=== PATIENT | female | born 1955 | race Caucasian/White ===

== ENCOUNTER 2020-10-28 18:08 | Emergency (ER) | payer MEDICARE | END 2020-10-28 22:39 | disposition home or self-care (01) | LOC: FER 18:08 | DX: S40.012A Contusion of left shoulder, initial encounter (principal); S70.02XA Contusion of left hip, initial encounter; E11.22 Type 2 diabetes mellitus with diabetic chronic kidney disease; N18.9 Chronic kidney disease, unspecified; Z86.79 Personal history of other diseases of the circulatory system; W18.11XA Fall from or off toilet without subsequent striking against object, initial encounter; Y92.009 Unspecified place in unspecified non-institutional (private) residence as the place of occurrence of the external cause | CPT/HCPCS: 73000; 73030; 73502 ==

== ENCOUNTER 2021-08-08 14:55 | Emergency (ER) | payer MEDICARE | END 2021-08-08 18:42 | disposition home or self-care (01) | LOC: FER 14:55 | DX: U07.1 COVID-19 (principal); E11.22 Type 2 diabetes mellitus with diabetic chronic kidney disease; N18.4 Chronic kidney disease, stage 4 (severe); Z23 Encounter for immunization; Z88.5 Allergy status to narcotic agent; Z88.6 Allergy status to analgesic agent; Z79.4 Long term (current) use of insulin | CPT/HCPCS: M0243; Q0244 ==